=== PATIENT | female | born 1990 | race Caucasian/White ===

== ENCOUNTER 2018-05-07 08:21 | Emergency (ER) | payer OTHER, MEDICAID ==
[2018-05-07 09:01] LABS: ADD MAN DIFF? NO
[2018-05-07 09:05] LABS: BASOPHILS % 0.6 % (0.0-2.0); EOSINOPHILS # 0.1 10^3/ul (0.0-0.5); EOSINOPHILS % 2.5 % (0.0-7.0); HEMATOCRIT 31.1 % (37.0-47.0); HEMOGLOBIN 9.1 g/dl (12.0-16.0); LYMPHOCYTES # 1.7 10^3/ul (0.8-2.9); LYMPHOCYTES % 35.2 % (15.0-51.0); MEAN CORPUSCULAR HEMOGLOBIN 20.8 pg (29.0-33.0); MEAN CORPUSCULAR HGB CONC 29.3 g/dl (32.0-37.0); MEAN PLATELET VOLUME 11.7 fl (7.4-10.4); MONOCYTE # 0.4 10^3/ul (0.3-0.9); MONOCYTES % 8.7 % (0.0-11.0); NEUTROPHIL # 2.5 10^3/ul (1.6-7.5); NEUTROPHILS % 52.6 % (39.0-77.0); PLATELET COUNT 202 10^3/UL (140-415); RED BLOOD COUNT 4.38 10^6/ul (4.20-5.40); RED CELL DISTRIBUTION WIDTH 14.6 % (11.5-14.5)
[2018-05-07 09:05] LABS: WHITE BLOOD COUNT 4.7 10^3/ul (4.8-10.8)
== END 2018-05-07 09:39 | disposition home or self-care (01) ==
LOC: E/R 08:21
DX: D64.9 Anemia, unspecified (principal)
CPT/HCPCS: 85025; 99283